=== PATIENT | male | born 1955 | race Caucasian/White ===

== ENCOUNTER 2017-02-15 19:36 | Inpatient (IN) | payer OTHER ==
[~2017-02-15] VITALS: Ht 180.3 cm; Wt 91.3 kg
[~2017-02-15 19:36] MED LIST: OMNIPAQUE 350 MG/ML, 100ML BOTTLE ONE
[2017-02-15] MEDS ORDERED: ONDANSETRON 2MG/ML, 2ML ONE ×2 (20:22→22:54)
[2017-02-15] MEDS ORDERED: FAMOTIDINE 20 MG/2 ML ONE (20:22)
[2017-02-15] MEDS ORDERED: MORPHINE SULFATE 4 MG/ML, 1ML ONE (20:22)
[2017-02-15] MEDS ORDERED: SODIUM CHLORIDE 0.9% 1,000ML IVBOLUS ONE ×2 (20:30)
[2017-02-15] MEDS ORDERED: MORPHINE SULFATE 4 MG/ML, 1ML IVPush PRN (20:30)
[2017-02-15] MEDS ORDERED: FAMOTIDINE 20 MG/2 ML IVP ONE (20:30)
[2017-02-15] MEDS ORDERED: ONDANSETRON 2MG/ML, 2ML IVPush ONE (20:30)
[2017-02-15] MEDS ORDERED: OMEP2.5S PO (20:53)
[2017-02-15 21:00] LABS: ASPARTATE AMINO TRANSFERASE 19 U/L (15-37); BLOOD UREA NITROGEN 8 mg/dL (7-18)
[2017-02-15] MEDS ORDERED: ACETAMINOPHEN 325 MG TABLET ONE (22:23)
[2017-02-15] MEDS ORDERED: ACETAMINOPHEN 325 MG TABLET PO ONE (22:30)
[2017-02-15] MEDS ORDERED: ACETAMINOPHEN 325 MG SUPP ONE (22:54)
[2017-02-16 00:52] LABS: GLUCOSE, CSF 57 mg/dL (40-80)
[2017-02-16] MEDS ORDERED: TEMAZEPAM 15 MG CAPSULE PO PRN (01:00)
[2017-02-16] MEDS ORDERED: ACETAMINOPHEN 650 MG SUPP PR ONE (02:00)
[2017-02-16] MEDS ORDERED: ONDANSETRON 2MG/ML, 2ML IVPush ONE (02:00)
[2017-02-16 02:19] VITALS: BP 141/62
[2017-02-16] MEDS: SODIUM CHLORIDE 0.9% 1,000 ML IV SCH ×2 (02:28→20:40)
[2017-02-16] MEDS ORDERED: VANCOMYCIN PER PHARMACY MC PRN (02:30)
[2017-02-16] MEDS ORDERED: VANCOMYCIN 2,300 MG in SODIUM CHLORIDE 0.9% 500 ML IV ONE (03:00)
[2017-02-16] MEDS: AMPICILLIN 2 GM in SODIUM CHLORIDE 0.9% 100 ML IV SCH ×5 (03:18→20:40)
[2017-02-16] MEDS ORDERED: PHARMACOKINETIC MONITORING MC PRN (03:30)
[2017-02-16] MEDS ORDERED: PHARMACOKINETIC CONSULTATION MC ONE (03:30)
[2017-02-16] MEDS: PROCHLORPERAZINE 5 MG/ML, 2ML IVPush PRN (03:41)
[2017-02-16] MEDS: CEFTRIAXONE PMX 2GM/50ML 50 ML IV SCH ×2 (04:15→19:27)
[2017-02-16] MEDS: BUTALB/APAP/CAFFEINE 50MG/325MG/40MG PO PRN ×3 (05:00→17:17)
[2017-02-16] MEDS: FAMOTIDINE 20 MG TABLET PO SCH ×2 (07:38→22:05)
[2017-02-16 07:40] VITALS: BP 135/67
[2017-02-16] MEDS: morphine SULFATE 10 MG/ML, 1ML IVPush PRN ×2 (10:29→20:40)
[2017-02-16] MEDS: ACYCLOVIR 900 MG in SODIUM CHLORIDE 0.9% 250 ML IV SCH ×2 (12:07→22:04)
[2017-02-16] MEDS ORDERED: POTASSIUM CHLORIDE 20 MEQ TAB.ER.PRT PO ONE (12:30)
[2017-02-16 13:23] LABS: HIV 1&2 ANTIBODY SCREEN Nonreactive (Nonreactive); HIV-1 p24 ANTIGEN Nonreactive (Nonreactive)
[2017-02-16 14:02] VITALS: BP 117/56
[2017-02-16] MEDS: VANCOMYCIN 1,800 MG in SODIUM CHLORIDE 0.9% 250 ML IV SCH (16:29)
[2017-02-16] MEDS: ONDANSETRON 2MG/ML, 2ML IVPush PRN (17:17)
[2017-02-16 22:17] VITALS: BP 163/87
[2017-02-16] MEDS: ACETAMINOPHEN 325 MG TABLET PO PRN (22:21)
[2017-02-17] MEDS: AMPICILLIN 2 GM in SODIUM CHLORIDE 0.9% 100 ML IV SCH ×5 (00:27→18:12)
[2017-02-17 02:18] VITALS: BP 158/94
[2017-02-17] MEDS: BUTALB/APAP/CAFFEINE 50MG/325MG/40MG PO PRN ×2 (02:22→06:22)
[2017-02-17] MEDS: VANCOMYCIN 1,800 MG in SODIUM CHLORIDE 0.9% 250 ML IV SCH ×2 (05:02→16:30)
[2017-02-17 06:04] LABS: ASPARTATE AMINO TRANSFERASE 20 U/L (15-37); BLOOD UREA NITROGEN 7 mg/dL (7-18)
[2017-02-17] MEDS: ACYCLOVIR 900 MG in SODIUM CHLORIDE 0.9% 250 ML IV SCH ×3 (07:22→23:21)
[2017-02-17 08:30] VITALS: BP 157/94
[2017-02-17] MEDS: CEFTRIAXONE PMX 2GM/50ML 50 ML IV SCH (09:22)
[2017-02-17] MEDS: MORPHINE SULFATE 4 MG/ML, 1ML IVPush PRN ×2 (09:22→14:50)
[2017-02-17] MEDS: FAMOTIDINE 20 MG TABLET PO SCH ×2 (09:22→20:25)
[2017-02-17] MEDS: ONDANSETRON 2MG/ML, 2ML IVPush PRN (09:28)
[2017-02-17] MEDS ORDERED: METOCLOPRAMIDE 5 MG/ML, 2ML IVPush ONE (10:00)
[2017-02-17] MEDS ORDERED: DIPHENHYDRAMINE 50 MG/ML, 1ML IVPush ONE (10:00)
[2017-02-17 13:19] LABS: DAU SCREEN DISCLAIMER
[2017-02-17 14:27] VITALS: BP 180/94
[2017-02-17 14:57] VITALS: BP 185/93
[2017-02-17] MEDS ORDERED: hydrALAzine 20 MG/ML, 1ML IV PRN (15:00)
[2017-02-17] MEDS: ACETAMINOPHEN 325 MG TABLET PO PRN (17:14)
[2017-02-17 17:16] VITALS: BP 154/85
[2017-02-17] MEDS: METOCLOPRAMIDE 5 MG/ML, 2ML IVPush PRN (17:49)
[2017-02-17] MEDS: DIPHENHYDRAMINE 50 MG/ML, 1ML IVPush PRN (17:49)
[2017-02-17 20:07] VITALS: BP 120/65
[2017-02-18] MEDS: POTASSIUM CHLORIDE 20 MEQ in SODIUM CHLORIDE 0.9% 1,000 ML IV SCH ×2 (00:23→07:43)
[2017-02-18] MEDS: METOCLOPRAMIDE 5 MG/ML, 2ML IVPush PRN ×4 (01:50→21:17)
[2017-02-18] MEDS: ACETAMINOPHEN 325 MG TABLET PO PRN (01:50)
[2017-02-18] MEDS: DIPHENHYDRAMINE 50 MG/ML, 1ML IVPush PRN ×4 (01:50→21:16)
[2017-02-18 01:56] VITALS: BP 151/73
[2017-02-18 04:42] LABS: BLOOD UREA NITROGEN 4 mg/dL (7-18)
[2017-02-18 04:46] LABS: ASPARTATE AMINO TRANSFERASE 14 U/L (15-37)
[2017-02-18 05:07] LABS: HIV 1&2 ANTIBODY SCREEN Nonreactive (Nonreactive); HIV-1 p24 ANTIGEN Nonreactive (Nonreactive)
[2017-02-18 07:17] VITALS: BP 151/82
[2017-02-18] MEDS: ACYCLOVIR 900 MG in SODIUM CHLORIDE 0.9% 250 ML IV SCH ×2 (07:44→16:35)
[2017-02-18] MEDS: FAMOTIDINE 20 MG TABLET PO SCH (07:44)
[2017-02-18] MEDS: HEPARIN 5,000 UNITS/ML, 1ML SQ SCH ×2 (07:44→16:35)
[2017-02-18] MEDS ORDERED: POTASSIUM CHLORIDE 20 MEQ TAB.ER.PRT PO ONE (10:00)
[2017-02-18] MEDS ORDERED: POTASSIUM CHLORIDE 40 MEQ in SODIUM CHLORIDE 0.9% 500 ML IV ONE (10:00)
[2017-02-18] MEDS: MORPHINE SULFATE 4 MG/ML, 1ML IVPush PRN ×2 (10:11→13:11)
[2017-02-18] MEDS: BUTALB/APAP/CAFFEINE 50MG/325MG/40MG PO PRN ×2 (10:11→20:02)
[2017-02-18] MEDS: OMEPRAZOLE 20 MG CAPSULE.DR PO SCH (10:42)
[2017-02-18] MEDS ORDERED: MAGNESIUM SULFATE PMX 4GM/100M 100 ML IV ONE (11:30)
[2017-02-18 14:43] VITALS: BP 117/84
[2017-02-18 19:15] VITALS: BP 149/96
[2017-02-19] MEDS: MORPHINE SULFATE 4 MG/ML, 1ML IVPush PRN ×2 (00:55→05:26)
[2017-02-19] MEDS: ACYCLOVIR 900 MG in SODIUM CHLORIDE 0.9% 250 ML IV SCH ×2 (01:13→08:45)
[2017-02-19] MEDS: HEPARIN 5,000 UNITS/ML, 1ML SQ SCH ×3 (01:14→17:38)
[2017-02-19] MEDS: PROCHLORPERAZINE 5 MG/ML, 2ML IVPush PRN (01:27)
[2017-02-19 01:50] VITALS: BP 176/106
[2017-02-19 03:10] VITALS: BP 157/94
[2017-02-19] MEDS: POTASSIUM CHLORIDE 40 MEQ in SODIUM CHLORIDE 0.9% 1,000 ML IV SCH ×2 (03:52→11:00)
[2017-02-19] MEDS ORDERED: KETOROLAC 30 MG/1 ML IV ONE (04:30)
[2017-02-19 06:09] LABS: BLOOD UREA NITROGEN 6 mg/dL (7-18)
[2017-02-19 07:41] VITALS: BP 161/94
[2017-02-19] MEDS ORDERED: METHOCARBAMOL 750 MG TABLET PO ONE (08:00)
[2017-02-19] MEDS: OMEPRAZOLE 20 MG CAPSULE.DR PO SCH (08:45)
[2017-02-19] MEDS: KETOROLAC 30 MG/1 ML IVPush PRN ×2 (08:48→17:38)
[2017-02-19] MEDS: POTASSIUM CHLORIDE 20 MEQ TAB.ER.PRT PO SCH ×2 (12:32→17:38)
[2017-02-19 13:23] VITALS: BP 144/86
[2017-02-19] MEDS: METHOCARBAMOL 500 MG TABLET PO SCH ×2 (13:42→18:03)
[2017-02-19 16:06] LABS: WESTNILEVIRUSIGG SEE PRINTED REPORT; WESTNILEVIRUSIGM SEE PRINTED REPORT
[2017-02-19 18:59] VITALS: BP 148/88
[2017-02-19] MEDS: OXYcodone/APAP 5/325MG TABLET PO PRN (19:46)
[2017-02-20] MEDS: KETOROLAC 30 MG/1 ML IVPush PRN ×4 (00:13→20:11)
[2017-02-20] MEDS: METHOCARBAMOL 500 MG TABLET PO SCH ×5 (00:13→21:17)
[2017-02-20] MEDS ORDERED: POTASSIUM CHLORIDE 40 MEQ in SODIUM CHLORIDE 0.9% 1,000 ML IV SCH ×2 (00:59→03:29)
[2017-02-20 01:31] VITALS: BP 149/88
[2017-02-20] MEDS: OXYcodone/APAP 5/325MG TABLET PO PRN ×2 (01:44→09:40)
[2017-02-20] MEDS: HEPARIN 5,000 UNITS/ML, 1ML SQ SCH ×3 (01:44→18:00)
[2017-02-20 06:01] LABS: ASPARTATE AMINO TRANSFERASE 42 U/L (15-37); BLOOD UREA NITROGEN 8 mg/dL (7-18)
[2017-02-20 08:03] VITALS: BP 145/80
[2017-02-20] MEDS: POTASSIUM CHLORIDE 20 MEQ TAB.ER.PRT PO SCH ×2 (09:40→18:25)
[2017-02-20] MEDS: OMEPRAZOLE 20 MG CAPSULE.DR PO SCH (09:42)
[2017-02-20] MEDS: OXYcodone/APAP 5/325MG TABLET PO SCH ×3 (10:00→22:04)
[2017-02-20 13:25] VITALS: BP 177/94
[2017-02-20] MEDS ORDERED: DOCUSATE 100 MG CAPSULE PO PRN (18:30)
[2017-02-20 19:05] VITALS: BP 186/79
[2017-02-20 19:07] LABS: ADENOVIRUS PCR Negative (Negative); INFLUENZA A PCR Negative (Negative); INFLUENZA B PCR Negative (Negative); METAPNEUMOVIRUS PCR Negative (Negative); PARAINFLUENZA 1 PCR Negative (Negative); PARAINFLUENZA 2 PCR Negative (Negative); PARAINFLUENZA 3 PCR Negative (Negative); RESP SYNCYTIAL VIRUS A PCR Negative (Negative); RESP SYNCYTIAL VIRUS B PCR Negative (Negative); RHINOVIRUS PCR Negative (Negative)
[2017-02-20] MEDS ORDERED: hydrALAzine 20 MG/ML, 1ML IV ONE (20:00)
[2017-02-20] MEDS: ACETAMINOPHEN 325 MG TABLET PO PRN (20:11)
[2017-02-20] MEDS ORDERED: hydrALAzine 20 MG/ML, 1ML IV PRN (21:00)
[2017-02-20 22:04] VITALS: BP 153/83
[2017-02-21 01:26] VITALS: BP 157/82
[2017-02-21] MEDS: HEPARIN 5,000 UNITS/ML, 1ML SQ SCH ×3 (02:07→18:30)
[2017-02-21] MEDS: BUTALB/APAP/CAFFEINE 50MG/325MG/40MG PO PRN (02:57)
[2017-02-21] MEDS: KETOROLAC 30 MG/1 ML IVPush PRN (03:23)
[2017-02-21] MEDS: ONDANSETRON 2MG/ML, 2ML IVPush PRN (03:23)
[2017-02-21] MEDS: OXYcodone/APAP 5/325MG TABLET PO SCH ×2 (04:02→09:40)
[2017-02-21] MEDS: METHOCARBAMOL 500 MG TABLET PO SCH ×4 (06:10→22:49)
[2017-02-21 08:00] VITALS: BP 156/79
[2017-02-21] MEDS: OMEPRAZOLE 20 MG CAPSULE.DR PO SCH (09:40)
[2017-02-21 15:45] VITALS: BP 177/90
[2017-02-21] MEDS: OXYcodone/APAP 5/325MG TABLET PO PRN ×2 (16:35→22:50)
[2017-02-21 18:48] VITALS: BP 179/93
[2017-02-22 02:59] VITALS: BP 165/86
[2017-02-22] MEDS: METHOCARBAMOL 500 MG TABLET PO SCH ×4 (05:20→23:11)
[2017-02-22] MEDS: HEPARIN 5,000 UNITS/ML, 1ML SQ SCH ×3 (05:20→23:10)
[2017-02-22] MEDS: OXYcodone/APAP 5/325MG TABLET PO PRN (05:20)
[2017-02-22 08:41] VITALS: BP 154/84
[2017-02-22] MEDS ORDERED: AMLODIPINE 5 MG TABLET PO SCH (09:30)
[2017-02-22] MEDS: OMEPRAZOLE 20 MG CAPSULE.DR PO SCH (10:28)
[2017-02-22] MEDS: BUTALB/APAP/CAFFEINE 50MG/325MG/40MG PO PRN ×3 (11:24→23:10)
[2017-02-22 14:41] VITALS: BP 169/79
[2017-02-22 20:31] VITALS: BP 133/81
[2017-02-23 05:00] VITALS: BP 155/91
[2017-02-23] MEDS: METHOCARBAMOL 500 MG TABLET PO SCH ×2 (05:18→10:44)
[2017-02-23] MEDS: BUTALB/APAP/CAFFEINE 50MG/325MG/40MG PO PRN ×2 (05:18→10:44)
[2017-02-23] MEDS: HEPARIN 5,000 UNITS/ML, 1ML SQ SCH (07:00)
[2017-02-23 07:38] VITALS: BP 152/84
[2017-02-23] MEDS ORDERED: BUTA-177 PO (08:32)
[2017-02-23] MEDS ORDERED: OXYC1TAB7 PO (08:32)
[2017-02-23] MEDS ORDERED: IBUP400T PO (08:32)
[2017-02-23] MEDS ORDERED: AMLO5TAB2 PO (08:32)
[2017-02-23] MEDS ORDERED: METH500T7 PO (08:32)
[2017-02-23] MEDS ORDERED: AMLODIPINE 5 MG TABLET PO SCH (09:00)
[2017-02-23] MEDS: OMEPRAZOLE 20 MG CAPSULE.DR PO SCH (10:43)
[2017-02-23 22:06] LABS: COCCIDIOIDES IGG 0.2 IV (<=0.9); COCCIDIOIDES IGM 0.3 IV (<=0.9)
[2017-02-24 08:07] LABS: NGI WEST NILE VIRUS RT PCR Positive (.)
== END 2017-02-23 13:06 | disposition home or self-care (01) | DRG 871 ==
LOC: MERGE 23:59 → ED 23:59 → SUATTDRO 02-16 00:58 → EDIP 02-16 00:59 → 3NE 02-16 02:07
PROVIDERS: ADMIT Hospitalist; ATTEND Hospitalist
PROC: 009U3ZX Drainage of Spinal Canal, Percutaneous Approach, Diagnostic (ICD-10-PCS; principal; 2017-02-15)
DX: A41.9 Sepsis, unspecified organism (principal); A92.32 West Nile virus infection with other neurologic manifestation; G02 Meningitis in other infectious and parasitic diseases classified elsewhere; E43 Unspecified severe protein-calorie malnutrition; E87.6 Hypokalemia; I10 Essential (primary) hypertension; K21.9 Gastro-esophageal reflux disease without esophagitis; Z68.28 Body mass index [BMI] 28.0-28.9, adult
CPT/HCPCS: 36415; 70450; 70553; 71010; 74177; 80048; 80053; 80202; 80307; 81003; 82550; 82945; 83605; 83690; 83735; 84145; 84157; 84443; 85025; 85610; 85651; 85730; 86635; 86658; 86703; 86720; 86788; 86789; 87040; 87070; 87205; 87252; 87324; 87498; 87529; 87633; 87798; 87899; 89051; 93306; 96361; 96374; 96375; 96376; J0133; J0290; J0696; J1644; J1885; J2405; J3370; J3480; Q9967; G0435; J0360; J0780; J1200; J2270; J2765; J3475; J7030; J7040; J7050; S0028

== ENCOUNTER 2018-07-26 19:46 | Inpatient (IN) | payer OTHER, SELFPAY ==
[~2018-07-26] VITALS: Ht 177.8 cm; Wt 90.8 kg
[~2018-07-26 19:46] MED LIST changes: +AMLO-150 PO; +BUTA-177 PO; +IBUP-1221 PO; +METH500T7 PO; +OMEP2.5S2 PO; -OMNIPAQUE 350 MG/ML, 100ML BOTTLE ONE; +OXYC1TAB7 PO
--- NOTE | 2018-07-26 20:18 | NUR ---
PT PRESENTED WITH C/O SOB,CHILLS, EPIGASTRIC PAIN X3 HOURS. + N/V X 2 EPISODES. MONITORS APPLIED, CALL LIGHT WITHIN REACH, PROVIDED PT WITH WARM BLANKET, FAMILY AT BEDSIDE, PA/ERP AT BEDSIDE FOR EVAL
[2018-07-26] MEDS ORDERED: MORPHINE SULFATE 4 MG/ML, 1ML ONE ×3 (20:24→23:23)
[2018-07-26] MEDS ORDERED: ONDANSETRON 2MG/ML, 2ML ONE (20:24)
[2018-07-26] MEDS ORDERED: MORPHINE SULFATE 4 MG/ML, 1ML IVPush ONE (20:30)
[2018-07-26] MEDS ORDERED: ONDANSETRON 2MG/ML, 2ML IVPush ONE (20:30)
[2018-07-26] MEDS ORDERED: SODIUM CHLORIDE FLUSH 10ML SYR IVF ONE (20:30)
[2018-07-26 20:36] LABS: BASOPHILS # (AUTO) 0.01 x10^3/uL (0-0.1); BASOPHILS % (AUTO) 0 % (0-1); EOSINOPHILS # (AUTO) 0.01 x10^3/uL (0-0.4); EOSINOPHILS % (AUTO) 0 % (1-7); LYMPHOCYTES # (AUTO) 0.43 x10^3/uL (1-3.4); LYMPHOCYTES % (AUTO) 5 % (22-44); MD NO; MEAN CORPUSCULAR HEMOGLOBIN 31.1 pg (27.5-34.5); MEAN CORPUSCULAR HGB CONC 34.6 g/dL (33.2-36.2); MEAN CORPUSCULAR VOLUME 89.9 fL (81-97); MONOCYTES # (AUTO) 0.21 x10^3/uL (0.2-0.8); MONOCYTES % (AUTO) 3 % (2-9); NEUTROPHILS # (AUTO) 7.75 x10^3/uL (1.8-6.8); NEUTROPHILS % (AUTO) 92 % (42-75); PLATELET COUNT 188 x10^3/uL (130-400); RED BLOOD COUNT 5.47 x10^6/uL (4.38-5.82); RED CELL DISTRIBUTION WIDTH 13.4 % (9.4-14.8)
[2018-07-26 20:40] LABS: ALANINE AMINOTRANSFERASE 330 U/L (12-78); ALBUMIN 3.9 g/dL (3.4-5.0); ANION GAP 10 mmol/L (5-15); CALCIUM 8.2 mg/dL (8.5-10.1); CHLORIDE 106 mmol/L (98-107)
[2018-07-26 20:45] LABS: ALKALINE PHOSPHATASE 262 U/L (45-117); BILIRUBIN,TOTAL 2.2 mg/dL (0.2-1.0); TOTAL PROTEIN 7.5 g/dL (6.4-8.2); TROPONIN I < 0.015 ng/mL (0.000-0.045)
--- NOTE | 2018-07-26 20:51 | NUR ---
PT TO CT
[2018-07-26] MEDS ORDERED: OMNIPAQUE 350 MG/ML, 100ML BOTTLE ONE (20:57)
[2018-07-26] MEDS: MORPHINE SULFATE 4 MG/ML, 1ML IVPush PRN ×2 (21:28→23:23)
--- NOTE | 2018-07-26 21:35 | NUR ---
PT MEDICATED FOR PAIN, SEE MAR. PT STATED HE WILL TRY TO VOID AT THIS TIME FOR URINE SAMPLE
[2018-07-26 21:39] LABS: RAPID INFLUENZA A Negative (Negative); RAPID INFLUENZA B Negative (Negative)
[2018-07-26] MEDS ORDERED: ACETAMINOPHEN 500 MG TABLET ONE (21:47)
[2018-07-26] MEDS ORDERED: ACETAMINOPHEN 500 MG TABLET PO ONE (22:00)
--- NOTE | 2018-07-26 22:08 | NUR ---
URINE SAMPLE SENT, PT DENIES NEEDS AT THIS TIME, CALL LIGHT WITHIN REACH.
[2018-07-26 22:17] LABS: MICROSCOPIC NOT IND
[2018-07-26 22:19] LABS: CULTURE INDICATED? NO
--- NOTE | 2018-07-27 00:12 | NUR ---
FLOAT RN: PT RESTING IN ROOM. REQUIREMENTS ANALYST ON. SINUS TACH NOTED. CALL LIGHT IN PLACE. WILL CONTINUE TO MONITOR WHILE PRIMARY RN IS ON BREAK.
--- NOTE | 2018-07-27 00:13 | NUR ---
KARINE RN: DR GARCIA IN ROOM UPDATING PATIENT.
--- NOTE | 2018-07-27 00:39 | NUR ---
KARINE RN: REPORT CALLED INTO ABNER RN
[2018-07-27 01:45] VITALS: BP 109/72
[2018-07-27] MEDS ORDERED: IBUPROFEN 600 MG TABLET PO PRN (05:00)
[2018-07-27] MEDS: LACTATED RINGERS 1,000 ML IV SCH ×3 (05:00→20:41)
[2018-07-27] MEDS ORDERED: ONDANSETRON 2MG/ML, 2ML IVPush PRN (05:00)
[2018-07-27] MEDS ORDERED: hydrALAzine 20 MG/ML, 1ML IVPush PRN (05:00)
[2018-07-27] MEDS: HEPARIN 5,000 UNITS/ML, 1ML SQ SCH ×2 (05:32→14:32)
[2018-07-27] MEDS: morphine SULFATE 10 MG/ML, 1ML IVPush PRN ×5 (05:54→20:16)
[2018-07-27 06:35] LABS: BASOPHILS # (AUTO) 0.02 x10^3/uL (0-0.1); BASOPHILS % (AUTO) 0 % (0-1); EOSINOPHILS % (AUTO) 0 % (1-7); LYMPHOCYTES # (AUTO) 0.33 x10^3/uL (1-3.4); LYMPHOCYTES % (AUTO) 4 % (22-44); MD NO; MEAN CORPUSCULAR HEMOGLOBIN 31.2 pg (27.5-34.5); MEAN CORPUSCULAR HGB CONC 34.4 g/dL (33.2-36.2); MEAN CORPUSCULAR VOLUME 90.6 fL (81-97); MEAN PLATELET VOLUME 8.1 fL (7.4-10.4); MONOCYTES # (AUTO) 0.51 x10^3/uL (0.2-0.8); MONOCYTES % (AUTO) 6 % (2-9); NEUTROPHILS # (AUTO) 7.17 x10^3/uL (1.8-6.8); NEUTROPHILS % (AUTO) 89 % (42-75); PLATELET COUNT 156 x10^3/uL (130-400); RED CELL DISTRIBUTION WIDTH 13.4 % (9.4-14.8)
[2018-07-27 06:46] LABS: ALANINE AMINOTRANSFERASE 460 U/L (12-78); ALBUMIN 3.3 g/dL (3.4-5.0); ANION GAP 9 mmol/L (5-15); CALCIUM 7.8 mg/dL (8.5-10.1); CHLORIDE 106 mmol/L (98-107); CREATININE 0.98 mg/dL (0.7-1.3)
[2018-07-27 06:49] LABS: ALKALINE PHOSPHATASE 256 U/L (45-117); BILIRUBIN,TOTAL 4.8 mg/dL (0.2-1.0); TOTAL PROTEIN 6.8 g/dL (6.4-8.2)
[2018-07-27 06:57] VITALS: BP 129/84
[2018-07-27] MEDS: PANTOPRAZOLE 40 MG IV IVPush SCH (09:21)
[2018-07-27] MEDS: ONDANSETRON ODT 4 MG PO PRN ×2 (09:37→16:33)
[2018-07-27 09:42] VITALS: BP 157/88
[2018-07-27] MEDS: PIPERACILLIN/TAZO/PMX 3.375GM 50 ML IV SCH ×2 (11:06→17:05)
[2018-07-27 12:47] VITALS: BP 121/82
[2018-07-27] MEDS: ACETAMINOPHEN 325 MG TABLET PO PRN (12:47)
[2018-07-27] MEDS: KETOROLAC 30 MG/1 ML IV PRN ×2 (14:32→20:15)
[2018-07-27 20:00] VITALS: BP 118/66
[2018-07-28] MEDS: HEPARIN 5,000 UNITS/ML, 1ML SQ SCH ×4 (00:21→23:50)
[2018-07-28] MEDS: PIPERACILLIN/TAZO/PMX 3.375GM 50 ML IV SCH ×5 (00:21→23:50)
[2018-07-28] MEDS: morphine SULFATE 10 MG/ML, 1ML IVPush PRN ×3 (00:38→08:46)
[2018-07-28] MEDS: LACTATED RINGERS 1,000 ML IV SCH ×3 (03:30→20:15)
[2018-07-28 03:39] VITALS: BP 100/61
[2018-07-28 06:04] LABS: BASOPHILS # (AUTO) 0.02 x10^3/uL (0-0.1); BASOPHILS % (AUTO) 0 % (0-1); EOSINOPHILS # (AUTO) 0.07 x10^3/uL (0-0.4); EOSINOPHILS % (AUTO) 1 % (1-7); LYMPHOCYTES # (AUTO) 0.64 x10^3/uL (1-3.4); LYMPHOCYTES % (AUTO) 10 % (22-44); MD NO; MEAN CORPUSCULAR HEMOGLOBIN 31.3 pg (27.5-34.5); MEAN CORPUSCULAR HGB CONC 34.1 g/dL (33.2-36.2); MEAN PLATELET VOLUME 8.6 fL (7.4-10.4); MONOCYTES # (AUTO) 0.51 x10^3/uL (0.2-0.8); MONOCYTES % (AUTO) 8 % (2-9); NEUTROPHILS # (AUTO) 5.49 x10^3/uL (1.8-6.8); NEUTROPHILS % (AUTO) 82 % (42-75); PLATELET COUNT 102 x10^3/uL (130-400); RED BLOOD COUNT 4.38 x10^6/uL (4.38-5.82); RED CELL DISTRIBUTION WIDTH 13.5 % (9.4-14.8)
[2018-07-28 06:09] LABS: CHLORIDE 103 mmol/L (98-107)
[2018-07-28 06:20] LABS: ALANINE AMINOTRANSFERASE 276 U/L (12-78); ALBUMIN 2.9 g/dL (3.4-5.0); ALKALINE PHOSPHATASE 193 U/L (45-117); ANION GAP 9 mmol/L (5-15); BILIRUBIN,TOTAL 5.9 mg/dL (0.2-1.0); CALCIUM 7.9 mg/dL (8.5-10.1); CREATININE 0.95 mg/dL (0.7-1.3); TOTAL PROTEIN 5.7 g/dL (6.4-8.2)
[2018-07-28 07:06] VITALS: BP 119/70
[2018-07-28] MEDS: PANTOPRAZOLE 40 MG IV IVPush SCH (08:35)
[2018-07-28] MEDS ORDERED: FENTANYL PF 100 MCG/2ML ONE (09:57)
[2018-07-28] MEDS ORDERED: MIDAZOLAM 1 MG/ML, 2ML ONE (09:57)
[2018-07-28] MEDS ORDERED: PROPOFOL 50 ML ONE (09:57)
[2018-07-28] MEDS ORDERED: ONDANSETRON 2MG/ML, 2ML ONE (10:20)
[2018-07-28] MEDS ORDERED: ROCURONIUM 10MG/ML,5ML ONE (10:20)
[2018-07-28] MEDS ORDERED: DEXAMETHASONE 4 MG/ML, 1ML ONE (10:20)
[2018-07-28] MEDS ORDERED: SUCCINYLCHOLINE 20 MG/ML, 10ML ONE ×2 (10:20)
[2018-07-28] MEDS ORDERED: MIDAZOLAM 1 MG/ML, 2ML IV PRN (10:30)
[2018-07-28] MEDS ORDERED: PROMETHAZINE 25 MG/ML, 1ML IV PRN (10:30)
[2018-07-28] MEDS ORDERED: DIPHENHYDRAMINE 50 MG/ML, 1ML IVPush PRN (10:30)
[2018-07-28] MEDS ORDERED: ONDANSETRON 2MG/ML, 2ML IV PRN (10:30)
[2018-07-28] MEDS ORDERED: OXYcodone 5 MG/5 ML ORAL.SOL UDC PO PRN (10:30)
[2018-07-28] MEDS ORDERED: FENTANYL PF 100 MCG/2ML IV PRN (10:30)
[2018-07-28] MEDS ORDERED: EPHEDRINE 50 MG/ML, 1ML IVPush PRN (10:30)
[2018-07-28] MEDS ORDERED: MORPHINE SULFATE 4 MG/ML, 1ML IVPush PRN (10:30)
[2018-07-28] MEDS ORDERED: MEPERIDINE/PF 25MG/0.5ML IVPush PRN (10:30)
[2018-07-28] MEDS ORDERED: LABETALOL 5MG/ML, 20ML IV PRN (10:30)
[2018-07-28] MEDS ORDERED: PROMETHAZINE 12.5 MG SUPP PR PRN (10:30)
[2018-07-28] MEDS ORDERED: PROMETHAZINE 25 MG SUPP PR PRN (10:30)
[2018-07-28] MEDS ORDERED: EPHEDRINE 50 MG/ML, 1ML IM PRN (10:30)
[2018-07-28 11:50] VITALS: BP 131/77
[2018-07-28 12:51] VITALS: BP 117/73
[2018-07-28 20:02] VITALS: BP 131/78
[2018-07-29 02:59] VITALS: BP 116/71
[2018-07-29] MEDS: LACTATED RINGERS 1,000 ML IV SCH (03:10)
[2018-07-29] MEDS: PIPERACILLIN/TAZO/PMX 3.375GM 50 ML IV SCH ×4 (05:13→23:43)
[2018-07-29 06:45] LABS: ALANINE AMINOTRANSFERASE 170 U/L (12-78); ALBUMIN 2.5 g/dL (3.4-5.0); ANION GAP 8 mmol/L (5-15); CALCIUM 7.6 mg/dL (8.5-10.1); CHLORIDE 108 mmol/L (98-107); CREATININE 0.84 mg/dL (0.7-1.3)
[2018-07-29 06:47] LABS: ALKALINE PHOSPHATASE 154 U/L (45-117); BILIRUBIN,TOTAL 2.3 mg/dL (0.2-1.0); TOTAL PROTEIN 5.5 g/dL (6.4-8.2)
[2018-07-29 07:39] VITALS: BP 127/73
[2018-07-29] MEDS: HEPARIN 5,000 UNITS/ML, 1ML SQ SCH ×3 (08:00→23:43)
[2018-07-29] MEDS ORDERED: BUPIVACAINE/PF-EPI 0.5% 1:200K ONE (08:19)
[2018-07-29] MEDS: PANTOPRAZOLE 40 MG IV IVPush SCH (08:28)
[2018-07-29] MEDS ORDERED: MIDAZOLAM 1 MG/ML, 2ML ONE (09:05)
[2018-07-29] MEDS ORDERED: FENTANYL PF 250 MCG/5ML ONE (09:05)
[2018-07-29] MEDS ORDERED: LIDOCAINE 4%, 4 ML SYR/CANN TP ONE (09:07)
[2018-07-29] MEDS ORDERED: SUCCINYLCHOLINE 20 MG/ML, 10ML ONE (09:46)
[2018-07-29] MEDS ORDERED: PROPOFOL 10 MG/ML, 20ML ONE (09:46)
[2018-07-29] MEDS ORDERED: ONDANSETRON 2MG/ML, 2ML ONE (09:46)
[2018-07-29] MEDS ORDERED: CEFAZOLIN 1,000 MG ONE (09:46)
[2018-07-29] MEDS ORDERED: GLYCOPYRROLATE 0.2MG/1ML, 5ML ONE (09:46)
[2018-07-29] MEDS ORDERED: NEOSTIGMINE 1 MG/ML, 10ML ONE (09:46)
[2018-07-29] MEDS ORDERED: ROCURONIUM 10MG/ML,5ML ONE (09:46)
[2018-07-29] MEDS ORDERED: DEXAMETHASONE 4 MG/ML, 1ML ONE (09:46)
[2018-07-29] MEDS ORDERED: PROMETHAZINE 25 MG/ML, 1ML IV PRN ×2 (10:00→10:30)
[2018-07-29] MEDS ORDERED: LABETALOL 5MG/ML, 20ML IV PRN ×2 (10:00→10:30)
[2018-07-29] MEDS ORDERED: ONDANSETRON 2MG/ML, 2ML IV PRN ×3 (10:00→12:00)
[2018-07-29] MEDS ORDERED: hydrALAzine 20 MG/ML, 1ML IV PRN ×2 (10:00→10:30)
[2018-07-29] MEDS ORDERED: OXYcodone 5 MG/5 ML ORAL.SOL UDC PO PRN ×2 (10:00→10:30)
[2018-07-29] MEDS ORDERED: DIAZEPAM 5 MG/ML, 2ML IVPush PRN ×2 (10:00→10:30)
[2018-07-29] MEDS ORDERED: ACETAMINOPHEN 325 MG TABLET PO PRN ×2 (10:00→10:30)
[2018-07-29] MEDS ORDERED: ONDANSETRON ODT 8 MG PO PRN ×2 (10:00→10:30)
[2018-07-29] MEDS ORDERED: MEPERIDINE/PF 25MG/0.5ML IVPush PRN ×2 (10:00→10:30)
[2018-07-29] MEDS ORDERED: ACETAMINOPHEN 650 MG/20.3 ML UDC ONE (10:18)
[2018-07-29] MEDS ORDERED: FENTANYL PF 100 MCG/2ML ONE (10:19)
[2018-07-29] MEDS ORDERED: OXYcodone 5 MG/5 ML ORAL.SOL UDC ONE (10:20)
[2018-07-29] MEDS: ACETAMINOPHEN 325 MG TABLET PO PRN (10:23)
[2018-07-29] MEDS: FENTANYL PF 100 MCG/2ML IV PRN ×2 (10:25→10:38)
[2018-07-29] MEDS ORDERED: HYDROmorphone 2 MG/ML, 1ML IVPush PRN (10:30)
[2018-07-29] MEDS ORDERED: FENTANYL PF 100 MCG/2ML IV PRN (10:30)
[2018-07-29] MEDS ORDERED: hydrALAzine 20 MG/ML, 1ML ONE (10:43)
[2018-07-29] MEDS ORDERED: HYDROmorphone 2 MG/ML, 1ML ONE (10:43)
[2018-07-29] MEDS: HYDROmorphone 2 MG/ML, 1ML IVPush PRN ×11 (10:46→23:53)
[2018-07-29] MEDS ORDERED: morphine SULFATE 10 MG/ML, 1ML IV PRN (12:00)
[2018-07-29] MEDS ORDERED: BISACODYL 10 MG SUPP PR PRN (12:00)
[2018-07-29] MEDS: POTASSIUM CHLORIDE 20 MEQ in LACTATED RINGERS 1,000 ML IV SCH ×2 (13:54→22:04)
[2018-07-29 14:00] VITALS: BP 130/86
[2018-07-29] MEDS: DOCUSATE 100 MG CAPSULE PO SCH ×2 (14:42→22:03)
[2018-07-29 20:37] VITALS: BP 142/91
[2018-07-30 03:37] VITALS: BP 130/73
[2018-07-30 05:45] LABS: BASOPHILS # (AUTO) 0.05 x10^3/uL (0-0.1); BASOPHILS % (AUTO) 1 % (0-1); EOSINOPHILS % (AUTO) 0 % (1-7); LYMPHOCYTES # (AUTO) 0.88 x10^3/uL (1-3.4); LYMPHOCYTES % (AUTO) 11 % (22-44); MD NO; MEAN CORPUSCULAR HEMOGLOBIN 31.3 pg (27.5-34.5); MEAN CORPUSCULAR HGB CONC 34.5 g/dL (33.2-36.2); MEAN CORPUSCULAR VOLUME 90.6 fL (81-97); MEAN PLATELET VOLUME 7.9 fL (7.4-10.4); MONOCYTES # (AUTO) 0.76 x10^3/uL (0.2-0.8); MONOCYTES % (AUTO) 10 % (2-9); NEUTROPHILS # (AUTO) 6.08 x10^3/uL (1.8-6.8); NEUTROPHILS % (AUTO) 78 % (42-75); PLATELET COUNT 125 x10^3/uL (130-400); RED BLOOD COUNT 4.09 x10^6/uL (4.38-5.82); RED CELL DISTRIBUTION WIDTH 13.4 % (9.4-14.8)
[2018-07-30] MEDS: OXYcodone/APAP 5/325MG TABLET PO PRN ×3 (05:46→10:24)
[2018-07-30] MEDS: PIPERACILLIN/TAZO/PMX 3.375GM 50 ML IV SCH (05:46)
[2018-07-30] MEDS: POTASSIUM CHLORIDE 20 MEQ in LACTATED RINGERS 1,000 ML IV SCH (05:46)
[2018-07-30 05:59] LABS: ALBUMIN 2.6 g/dL (3.4-5.0); ANION GAP 6 mmol/L (5-15); CALCIUM 7.8 mg/dL (8.5-10.1); CHLORIDE 105 mmol/L (98-107)
[2018-07-30 06:04] LABS: ALANINE AMINOTRANSFERASE 152 U/L (12-78); ALKALINE PHOSPHATASE 126 U/L (45-117); BILIRUBIN,TOTAL 2.3 mg/dL (0.2-1.0); CREATININE 0.78 mg/dL (0.7-1.3); TOTAL PROTEIN 5.8 g/dL (6.4-8.2)
[2018-07-30] MEDS: PANTOPRAZOLE 40 MG IV IVPush SCH (07:30)
[2018-07-30] MEDS: HEPARIN 5,000 UNITS/ML, 1ML SQ SCH (07:50)
[2018-07-30] MEDS: DOCUSATE 100 MG CAPSULE PO SCH (07:50)
[2018-07-30 08:22] VITALS: BP 113/72
[2018-07-30] MEDS ORDERED: AMOX1TAB64 PO (09:15)
[2018-07-30] MEDS ORDERED: OXYC-307 PO (10:34)
== END 2018-07-30 10:45 | disposition home or self-care (01) | DRG 417 ==
LOC: ED 21:59 → 4NOR 07-27 00:14 → ED 07-27 00:55 → DCLOUNGE 07-30 10:31
PROVIDERS: ADMIT Hospitalist; ATTEND Hospitalist
PROC: 0FC98ZZ Extirpation of Matter from Common Bile Duct, Via Natural or Artificial Opening Endoscopic (ICD-10-PCS; 2018-07-29)
PROC: BF131ZZ Fluoroscopy of Gallbladder and Bile Ducts using Low Osmolar Contrast (ICD-10-PCS; 2018-07-29)
PROC: 0FT44ZZ Resection of Gallbladder, Percutaneous Endoscopic Approach (ICD-10-PCS; principal; 2018-07-29 09:30)
DX: K80.66 Calculus of gallbladder and bile duct with acute and chronic cholecystitis without obstruction (principal); E43 Unspecified severe protein-calorie malnutrition; K85.10 Biliary acute pancreatitis without necrosis or infection; B17.9 Acute viral hepatitis, unspecified; B96.20 Unspecified Escherichia coli [E. coli] as the cause of diseases classified elsewhere; B96.89 Other specified bacterial agents as the cause of diseases classified elsewhere; Z68.28 Body mass index [BMI] 28.0-28.9, adult; K21.9 Gastro-esophageal reflux disease without esophagitis; K44.9 Diaphragmatic hernia without obstruction or gangrene; K76.0 Fatty (change of) liver, not elsewhere classified; K82.8 Other specified diseases of gallbladder; Z86.61 Personal history of infections of the central nervous system; Z79.899 Other long term (current) drug therapy
CPT/HCPCS: 36415; 74328; 87400; 99285; J3490; 71275; 74177; 74181; 76700; 80053; 81003; 83605; 83690; 83735; 83880; 84100; 84484; 85025; 87040; 87077; 87186; 88304; 93005; 96374; 96375; 96376; G0378; J0690; J1100; J1170; J1644; J1885; J2250; J2405; J2543; J2704; J2710; J3010; J3480; Q0162; Q9967; C1769; C9113; J0330; J0360; J2270; J7120

== ENCOUNTER 2018-12-29 04:37 | Emergency (ER) | payer SELFPAY ==
[~2018-12-29] VITALS: Ht 177.8 cm; Wt 92.2 kg
[~2018-12-29 04:37] MED LIST changes: +AMOX1TAB64 PO; +OXYC-307 PO
[2018-12-29] MEDS ORDERED: KETOROLAC 30 MG/1 ML IM ONE (05:30)
[2018-12-29] MEDS ORDERED: METHOCARBAMOL 750 MG TABLET PO ONE (05:30)
[2018-12-29] MEDS ORDERED: KETOROLAC 30 MG/1 ML ONE (05:37)
[2018-12-29] MEDS ORDERED: METHOCARBAMOL 750 MG TABLET ONE (05:37)
[2018-12-29] MEDS ORDERED: HYDROcodone/APAP 5/325 TABLET PO ONE (06:30)
[2018-12-29] MEDS ORDERED: HYDROcodone/APAP 5/325 TABLET ONE (06:40)
[2018-12-29 06:41] VITALS: BP 145/89
== END 2018-12-29 06:58 | disposition home or self-care (01) ==
LOC: ED 06:17
DX: S16.1XXA Strain of muscle, fascia and tendon at neck level, initial encounter (principal); R93.5 Abnormal findings on diagnostic imaging of other abdominal regions, including retroperitoneum; X58.XXXA Exposure to other specified factors, initial encounter; Y93.89 Activity, other specified; Y92.89 Other specified places as the place of occurrence of the external cause; Y99.8 Other external cause status
CPT/HCPCS: 72125; 96372; 99284; J1885